=== PATIENT | female | born 1975 | race American Indian/Alaskan Native ===

== ENCOUNTER 2020-08-25 13:24 | Inpatient (IN) | payer OTHER ==
[2020-08-25 14:53] LABS: Mean Corpuscular HGB Conc 36 % (30-34); Mean Corpuscular Volume 93 fl (79-97); Platelet Count 493 K/mm3 (140-440); Red Blood Count 2.11 M/mm3 (3.65-5.03)
[2020-08-25 14:59] LABS: Red Cell Distribution Width 21.2 % (13.2-15.2)
[2020-08-25 15:01] LABS: Hematocrit 19.6 % (30.3-42.9)
[2020-08-25 15:03] LABS: Alanine Aminotransferase 44 units/L (7-56); Albumin 3.8 g/dL (3.9-5); BUN/Creatinine Ratio 10; Bilirubin,Direct 0.6 mg/dL (0-0.2); Blood Urea Nitrogen 8 mg/dL (7-17); Calcium 9.1 mg/dL (8.4-10.2); Hemolysis Index 88
[2020-08-25] MEDS ORDERED: SODIUM CHLORIDE 0.9% 500 ML 500 ML IV ONE (15:32)
[2020-08-25] MEDS ORDERED: diphenhydrAMINE 50 MG/ML VIAL IV ONE ×2 (15:34→17:48)
[2020-08-25] MEDS ORDERED: ONDANSETRON 4 MG/2 ML INJ IV ONE ×2 (15:34→17:47)
[2020-08-25] MEDS ORDERED: CLINDAMYCIN 600 MG/50 mL 600 MG/50 ML BAG IV ONE (15:34)
[2020-08-25] MEDS ORDERED: HYDROmorphone 1 MG/1 ML INJ IV ONE ×3 (15:34→17:48)
[2020-08-25 15:36] LABS: Anisocytosis 1+; Hypochromasia Few; Poikilocytosis Few; Schistocytes Few; Sickle Cells 1+; Total Cells Counted 100
[2020-08-25] MEDS ORDERED: D5W/0.2% NACL 1,000 ML IV SCH (16:00)
--- NOTE | 2020-08-25 16:02 | Emergency Department Report ---
ED General Adult HPI - General Chief complaint: Sickle Cell Crisis Stated complaint: SICKLE CELL PAIN Time Seen by Provider: 08/25/20 15:25 Source: patient Mode of arrival: Ambulatory Limitations: No Limitations - History of Present Illness Initial comments: This is a 45-year-old female with sickle cell disease that states that she has been having a crisis for the last 2 days. She complains of hurting all over. She does not exercise her chest or her abdomen. She also states that her face has become swollen. She does not refer fever or chills. She has some dyspnea on exertion but not at rest. She states that she has been coughing both white and yellow sputum. She states she has been admitted to this facility before. However, I do not find any previous records on the [address] system. She states that she has had a transfusion of blood last September. -: Gradual, days(s) Location: upper extremity, lower extremity Radiation: non-radiation Severity scale (0 -10): 10 Quality: aching Consistency: constant Associated Symptoms: denies other symptoms, cough, shortness of breath, other (Facial swelling) Treatments Prior to Arrival: none - Related Data Allergies Allergy/AdvReac Type Severity Reaction Status Date / Time No Known Allergies Allergy Unverified 08/25/20 13:26 ED Review of Systems ROS: Stated complaint: SICKLE CELL PAIN Other details as noted in HPI Constitutional: denies: chills, fever Eyes: denies: eye pain, eye discharge, vision change ENT: denies: ear pain, throat pain Respiratory: cough, SOB with exertion. denies: wheezing Cardiovascular: denies: chest pain, palpitations Endocrine: no symptoms reported Gastrointestinal: denies: abdominal pain, nausea, diarrhea Genitourinary: denies: urgency, dysuria, discharge Musculoskeletal: as per HPI. denies: joint swelling Skin: denies: rash, lesions Neurological: denies: headache, weakness, paresthesias Psychiatric: denies: anxiety, depression Hematological/Lymphatic: denies: easy bleeding, easy bruising ED Past Medical Hx - Past Medical History Previous Medical History?: Yes Hx Sickle Cell Disease: Yes - Surgical History Past Surgical History?: No ED Physical Exam - General Limitations: Physical Limitation General appearance: alert, in no apparent distress, other (Pale appearing) - Head Head exam: Present: atraumatic, normocephalic - Eye Eye exam: Present: normal appearance. Absent: scleral icterus - ENT ENT exam: Present: mucous membranes moist, other (Right facial swelling. Tenderness over the maxillary sinus. No grossly carious teeth. Multiple amalgams.) - Neck Neck exam: Present: normal inspection. Absent: tenderness, meningismus - Respiratory Respiratory exam: Present: normal lung sounds bilaterally. Absent: respiratory distress - Cardiovascular Cardiovascular Exam: Present: regular rate, normal rhythm. Absent: systolic murmur, diastolic murmur, rubs, gallop - GI/Abdominal GI/Abdominal exam: Present: soft, normal bowel sounds. Absent: distended, tenderness, guarding, rebound - Extremities Exam Extremities exam: Present: normal inspection - Back Exam Back exam: Present: normal inspection - Neurological Exam Neurological exam: Present: alert, oriented X3, CN II-XII intact. Absent: motor sensory deficit - Psychiatric Psychiatric exam: Present: normal affect, normal mood - Skin Skin exam: Present: warm, dry, intact, normal color. Absent: rash ED Course Vital Signs 08/25/20 13:26 Temperature 99.1 F Pulse Rate 97 H Respiratory 15 Rate Blood Pressure 153/64 O2 Sat by Pulse 93 Oximetry - Reevaluation(s) Reevaluation #1: Lactic acid, blood cultures, type and cross for [address] of the face ordered. Clindamycin IV. Hospitalist paged. Admission is anticipated. 08/25/20 16:06 ED Medical Decision Making - Lab Data Result diagrams: 08/25/20 14:30 08/25/20 14:30 Laboratory Results - last 24 hr 08/25/20 08/25/20 08/25/20 14:30 14:30 15:35 WBC 22.3 H RBC 2.11 L Hgb 7.0 L Hct 19.6 L* MCV 93 MCH 33 H MCHC 36 H RDW 21.2 H Plt Count 493 H Lymph # (Auto) Insurance Risk Surveyor Add Manual Diff Complete Total Counted 100 Seg Neuts % (Manual) 64.0 Band Neutrophils % 0 Lymphocytes % (Manual) 25.0 Reactive Lymphs % (Man) 0 Monocytes % (Manual) 9.0 H Eosinophils % (Manual) 1.0 Basophils % (Manual) 1.0 Metamyelocytes % 0 Myelocytes % 0 Promyelocytes % 0 Blast Cells % 0 Nucleated RBC % Not Reportable Seg Neutrophils # Man 14.3 H Band Neutrophils # 0.0 Lymphocytes # (Manual) 5.6 H Abs React Lymphs (Man) 0.0 Monocytes # (Manual) 2.0 H Eosinophils # (Manual) 0.2 Basophils # (Manual) 0.2 H Metamyelocytes # 0.0 Myelocytes # 0.0 Promyelocytes # 0.0 Blast Cells # 0.0 WBC Morphology Not Reportable Hypersegmented Neuts Not Reportable Hyposegmented Neuts Not Reportable Hypogranular Neuts Not Reportable Smudge Cells Not Reportable Toxic Granulation Not Reportable Toxic Vacuolation Not Reportable Dohle Bodies Not Reportable Pelger-Huet Anomaly Not Reportable Sincere Rods Not Reportable Platelet Estimate Not Reportable Clumped Platelets Not Reportable Plt Clumps, EDTA Not Reportable Large Platelets Not Reportable Giant Platelets Not Reportable Platelet Satelliting Not Reportable Plt Morphology Comment Not Reportable RBC Morphology Not Reportable Dimorphic RBCs Not Reportable Polychromasia Few Hypochromasia Few Poikilocytosis Few Anisocytosis 1+ Microcytosis Few Macrocytosis Not Reportable Spherocytes Not Reportable Pappenheimer Bodies Not Reportable Sickle Cells 1+ Target Cells Not Reportable Tear Drop Cells Not Reportable Ovalocytes Not Reportable Helmet Cells Not Reportable Stark-[place] Bodies Not Reportable Shandaken Rings Not Reportable Angela Cells Not Reportable Bite Cells Not Reportable Crenated Cell Not Reportable Elliptocytes Not Reportable Acanthocytes (Spur) Not Reportable Rouleaux Not Reportable Hemoglobin C Crystals Not Reportable Schistocytes Few Malaria parasites Not Reportable Percent Retic 11.65 H Andrew Bodies Not Reportable Hem Pathologist Commnt No PT INR APTT Sodium 136 L Potassium 4.8 Chloride 98.5 Carbon Dioxide 28 Anion Gap 14 BUN 8 Creatinine 0.8 Estimated GFR > 60 BUN/Creatinine Ratio 10 Glucose 171 H Calcium 9.1 Total Bilirubin 2.00 H Direct Bilirubin 0.6 H Indirect Bilirubin 1.4 AST 64 H ALT 44 Alkaline Phosphatase 160 H NT-Pro-B Natriuret Pep Total Protein 7.8 Albumin 3.8 L Albumin/Globulin Ratio 1.0 Blood Type A POSITIVE Crossmatch See Detail 08/25/20 08/25/20 15:35 15:35 WBC RBC Hgb Hct MCV MCH MCHC RDW Plt Count Lymph # (Auto) Add Manual Diff Total Counted Seg Neuts % (Manual) Band Neutrophils % Lymphocytes % (Manual) Reactive Lymphs % (Man) Monocytes % (Manual) Eosinophils % (Manual) Basophils % (Manual) Metamyelocytes % Myelocytes % Promyelocytes % Blast Cells % Nucleated RBC % Seg Neutrophils # Man Band Neutrophils # Lymphocytes # (Manual) Abs React Lymphs (Man) Monocytes # (Manual) Eosinophils # (Manual) Basophils # (Manual) Metamyelocytes # Myelocytes # Promyelocytes # Blast Cells # WBC Morphology Hypersegmented Neuts Hyposegmented Neuts Hypogranular Neuts Smudge Cells Toxic Granulation Toxic Vacuolation Dohle Bodies Pelger-Huet Anomaly Sincere Rods Platelet Estimate Clumped Platelets Plt Clumps, EDTA Large Platelets Giant Platelets Platelet Satelliting Plt Morphology Comment RBC Morphology Dimorphic RBCs Polychromasia Hypochromasia Poikilocytosis Anisocytosis Microcytosis Macrocytosis Spherocytes Pappenheimer Bodies Sickle Cells Target Cells Tear Drop Cells Ovalocytes Helmet Cells Stark-[place] Bodies Shandaken Rings [place] Cells Bite Cells Crenated Cell Elliptocytes Acanthocytes (Spur) Rouleaux Hemoglobin C Crystals Schistocytes Malaria parasites Percent Retic Andrew Bodies Hem Pathologist Commnt PT 14.4 INR 1.10 APTT 30.9 Sodium Potassium Chloride Carbon Dioxide Anion Gap BUN Creatinine Estimated GFR BUN/Creatinine Ratio Glucose Calcium Total Bilirubin Direct Bilirubin Indirect Bilirubin AST ALT Alkaline Phosphatase NT-Pro-B Natriuret Pep 329.4 Total Protein Albumin Albumin/Globulin Ratio Blood Type Crossmatch - Radiology Data FINDINGS: Subcutaneous soft tissue swelling is seen in the right facial region. Scattered areas of periodontal disease identified. I do not see definitive signs of abscess, although this is difficult to evaluate without IV contrast and because of dental amalgam artifact Prominent lymph nodes are seen bilaterally in the level 1 and level 2 regions, presumably reactive. Prominent soft tissue is seen in the roof the nasopharynx, presumably related to reactive adenoidal tissue. Please clinically correlate. Mild to moderate mucosal thickening seen in the right maxillary antrum, as well as the ethmoids. Bilateral temporomandibular joint disease seen.. IMPRESSION: 1. Cellulitic-type process seen in the right facial region, although no definitive signs of underlying cause appreciated. Study is suboptimal for reasons described above. Signer Name: Min Schreiber MD, III Signed: 08/25/2020 4:57 PM Workstation Name: [id number] Critical care attestation.: If time is entered above; I have spent that time in minutes in the direct care of this critically ill patient, excluding procedure time. ED Disposition Clinical Impression: Sickle cell crisis, Symptomatic anemia, Facial cellulitis, Periodontal disease Disposition: OP ADMIT IP TO THIS HOSP Is pt being admited?: Yes Does the pt Need Aspirin: No Condition: Stable Referrals: PRIMARY CARE, [Primary Care Provider] - 3-5 Days
--- NOTE | 2020-08-25 16:05 | XRay Report ---
CHEST 1 VIEW INDICATION / CLINICAL INFORMATION: cough. COMPARISON: None available. FINDINGS: SUPPORT DEVICES: None. HEART / MEDIASTINUM: No significant abnormality. LUNGS / PLEURA: Interstitial markings appear prominent in the right lung base raising concern for the possibility of right basilar pneumonia. Left lung is grossly clear. No pleural effusion noted. No pn eumothorax. ADDITIONAL FINDINGS: No significant additional findings. IMPRESSION: 1. Questionable right basilar pneumonia. Signer Name: Lizy Morrow MD Signed: 08/25/2020 4:00 PM Workstation Name: [id number]
[2020-08-25 16:18] LABS: INR 1.1 (0.87-1.13)
[2020-08-25 16:19] LABS: Partial Thromboplastin Time 30.9 Sec. (24.2-36.6)
[2020-08-25] MEDS ORDERED: SODIUM CHLORIDE 0.9% 1000 ML 3,000 ML IV ONE (16:58)
--- NOTE | 2020-08-25 17:02 | Cat Scan Report ---
CT facial bones wo con INDICATION / CLINICAL INFORMATION: 45 years Female; R facial swelling SSD. TECHNIQUE: Thin cut axial images obtained. Sagittal and coronal reconstructions performed. All CT scans at this location are performed using CT dose reduction for ALARA by means of automated exposure control. [place] al amalgam artifact noted. COMPARISON: None available. FINDINGS: Subcutaneous soft tissue swelling is seen in the right facial region. Scattered areas of periodontal disease identified. I do not see definitive signs of abscess, although this is difficult to evaluate without IV contrast and because of dental amalgam artifact Prominent lymph nodes are seen bilaterally in the level 1 and level 2 regions, presumably reactive. Prominent soft tissue is seen in the roof the nasopharynx, presumably related to reactive adenoidal t issue. Please clinically correlate. Mild to moderate mucosal thickening seen in the right maxillary antrum, as well as the ethmoids. Bilateral temporomandibular joint disease seen.. IMPRESSION: 1. Cellulitic-type process seen in the right facial region, although no definitive signs of underlyin g cause appreciated. Study is suboptimal for reasons described above. Signer Name: Min Schreiber MD, III Signed: 08/25/2020 4:57 PM Workstation Name: [id number]
[2020-08-25] MEDS ORDERED: ONDANSETRON 4 MG/2 ML INJ IV PRN (18:15)
[2020-08-25] MEDS ORDERED: MORPHINE 4 MG/1 ML INJ IV PRN (18:15)
[2020-08-25] MEDS ORDERED: ACETAMINOPHEN 325 MG TAB PO PRN (18:15)
--- NOTE | 2020-08-25 18:19 | History and Physical Report ---
History of Present Illness Chief complaint: I am hurting all over my body and my jaw is swollen History of present illness: 45-year-old female with sickle cell disease presents to ED for evaluation. Patient states that she has experienced generalized body pain over the past 2 days with persistent symptoms over the same timeframe. Patient also acknowledges right face swelling over the same timeframe. Patient transported to [facility] via private vehicle for further care and evaluation of the aforementioned symptoms. Patient seen and evaluated in the emergency department. Lab and imaging studies reviewed. Patient knowledges being told of need for dental follow-up but patient lost outpatient dental follow-up. Patient also acknowledges lack of follow-up for sickle cell disease. Patient found to have sickle cell disease crisis, complicated by right facial cellulitis without preseptal or post septal cellulitis or potential airway compromise. Patient placed in observation status and admitted to medical floor and treated with IV fluid resuscitation therapy, IV antibiotic therapy, and pain control therapy. P atient denies fever, chills, chest pain, palpitations, productive cough, skin rash, recent ill contacts, dysphagia, shortness of breath, drooling, trauma, known exposure to COVID-19. No prior admission for review. No medication listed at time of admission for reconciliation. Past History Past Medical History: other (See HPI) Past Surgical History: No surgical history, Other (Reviewed) Social history: single. denies: smoking, alcohol abuse, prescription drug abuse Family history: hypertension Medications and Allergies Allergies Allergy/AdvReac Type Severity Reaction Status Date / Time No Known Allergies Allergy Unverified 08/25/20 13:26 Active Meds: Active Medications Acetaminophen (Tylenol) 650 mg PO Q4H PRN PRN Reason: Pain MILD(1-3)/Fever >100.5/GAO Dextrose/Sodium Chloride (D5ns 0.2%) 1,000 mls @ 250 mls/hr IV DIRECT SPENCER Last Admin: 08/25/20 15:53 Dose: 250 mls/hr Documented by: Sodium Chloride (Nacl 0.9% 1000 Ml) 3,000 mls @ 999 mls/hr IV BOLUS ONE Stop: 08/25/20 19:58 Morphine Sulfate (Morphine) 2 mg IV Q4H PRN PRN Reason: Pain , Severe (7-10) Ondansetron HCl (Zofran) 4 mg IV Q8H PRN PRN Reason: Nausea And Vomiting Sodium Chloride (Sodium Chloride Flush Syringe 10 Ml) 10 ml IV BID SPENCER Sodium Chloride (Sodium Chloride Flush Syringe 10 Ml) 10 ml IV PRN PRN PRN Reason: LINE FLUSH Review of Systems Constitutional: other (Pain all over my body), no weight loss, no weight gain, no fever, no chills Ears, nose, mouth and throat: other (Right oral buccal mucosa edema), no ear pain, no ear discharge, no tinnitis, no decreased hearing, no nose pain, no nasal discharge, no hoarseness, no sore throat Cardiovascular: no chest pain, no orthopnea, no palpitations, no rapid/irregular heart beat, no edema, no syncope Respiratory: no cough, no cough with sputum, no excessive sputum, no hemoptysis, no shortness of breath Gastrointestinal: no abdominal pain, no nausea, no vomiting, no constipation, no change in bowel habits, no hematemesis Genitourinary Female: no pelvic pain, no flank pain, no menorrhagia, no dysuria, no urinary frequency, no urgency Rectal: no pain, no incontinence, no bleeding Musculoskeletal: no neck stiffness, no neck pain, no arm numbness/tingling, no low back pain, no shooting leg pain, no leg numbness/tingling Integumentary: no rash, no pruritis, no redness, no sores, no wounds Neurological: no head injury, no transient paralysis, no weakness, no parathesias, no numbness, no tingling Psychiatric: no anxiety, no memory loss, no change in sleep habits, no insomnia, no hypersomnia, no change in appetite, no change in libido Endocrine: no cold intolerance, no heat intolerance, no polyphagia, no polydipsia, no polyuria, no nocturia, no flushing Hematologic/Lymphatic: no easy bruising, no easy bleeding, no lymphedema Allergic/Immunologic: no wheezing, no persistent infections, no anaphylaxis, no angioedema Exam - Constitutional Vitals: Temp Pulse Resp BP Pulse Ox 99.1 F 93 H 15 133/75 94 08/25/20 13:26 08/25/20 15:45 08/25/20 15:45 08/25/20 17:45 08/25/20 17:45 General appearance: Present: mild distress - EENT Eyes: Present: PERRL ENT: hearing intact, clear oral mucosa, other (Right oral mucosa edema, no erythema, no fluctuance, no masses, no oral abscess) - Neck Neck: Present: supple, normal ROM - Respiratory Respiratory effort: normal Respiratory: bilateral: CTA - Cardiovascular Heart Sounds: Present: S1 & S2. Absent: rub, click - Extremities Extremities: pulses symmetrical, No edema Peripheral Pulses: within normal limits - Abdominal General gastrointestinal: Present: soft, non-tender, non-distended, normal bowel sounds Female genitourinary: Present: normal - Integumentary Integumentary: Present: clear, warm, dry - Musculoskeletal Musculoskeletal: gait normal, strength equal bilaterally - Psychiatric Psychiatric: appropriate mood/affect, intact judgment & insight - Neurologic Neurologic: CNII-XII intact, moves all extremities Results - Labs CBC & Chem 7: 08/25/20 14:30 08/25/20 14:30 Labs: Abnormal lab results 08/25/20 08/25/20 08/25/20 Range/Units 14:30 14:30 15:35 WBC 22.3 H (4.5-11.0) K/mm3 RBC 2.11 L (3.65-5.03) M/mm3 Hgb 7.0 L (10.1-14.3) gm/dl Hct 19.6 L* (30.3-42.9) % MCH 33 H (28-32) pg MCHC 36 H (30-34) % RDW 21.2 H (13.2-15.2) % Plt Count 493 H (140-440) K/mm3 Monocytes % (Manual) 9.0 H (0.0-7.3) % Seg Neutrophils # Man 14.3 H (1.8-7.7) K/mm3 Lymphocytes # (Manual) 5.6 H (1.2-5.4) K/mm3 Monocytes # (Manual) 2.0 H (0.0-0.8) K/mm3 Basophils # (Manual) 0.2 H (0.0-0.1) K/mm3 Percent Retic 11.65 H (0.78-2.58) % Sodium 136 L (137-145) mmol/L Glucose 171 H (65-100) mg/dL Total Bilirubin 2.00 H (0.1-1.2) mg/dL Direct Bilirubin 0.6 H (0-0.2) mg/dL AST 64 H (5-40) units/L Alkaline Phosphatase 160 H (35-129) units/L Albumin 3.8 L (3.9-5) g/dL Crossmatch See Detail Assessment and Plan - Patient Problems (1) Sickle cell crisis Current Visit: Yes Status: Acute Plan to address problem: CBC, CMP, reticulocyte count, IV fluid resuscitation therapy, pain control, monitor urine output every shift, supportive care. Outpatient hematology follow-up. (2) Systemic inflammatory response syndrome Current Visit: Yes Status: Acute Plan to address problem: CBC, CMP, empiric IV antibiotic therapy, supportive care (3) Facial cellulitis Current Visit: Yes Status: Acute Plan to address problem: Oral antibiotic therapy, supportive care, CT scan face. (4) DVT prophylaxis Current Visit: Yes Status: Acute Plan to address problem: SCD to bilateral lower extremities while in bed, patient is ambulatory
[2020-08-25] MEDS ORDERED: VANCOMYCIN/NS 1 GM/250 ML 1 GM/250 ML BAG IV ONE (18:21)
[2020-08-25] MEDS ORDERED: SODIUM CHLORIDE 0.9% 500 ML 500 ML ONE (20:02)
[2020-08-25] MEDS ORDERED: MORPHINE 2 MG/1 ML INJ ONE (20:23)
[2020-08-25] MEDS ORDERED: oxyCODONE /ACETAMINOPHEN 5-325MG TAB PO ONE (20:29)
[2020-08-25] MEDS ORDERED: metroNIDAZOLE 500 MG TAB ONE (21:27)
[2020-08-25] MEDS ORDERED: AMOXICILLIN/K CLAV 500/125MG TAB ONE (21:27)
[2020-08-25] MEDS: metroNIDAZOLE 500 MG TAB PO SCH (21:31)
[2020-08-25] MEDS ORDERED: AMOXICILLIN/K CLAV 875/125MG TAB ONE (21:33)
[2020-08-25] MEDS: AMOXICILLIN/K CLAV 875/125MG TAB PO SCH (21:34)
[2020-08-26] MEDS: HYDROmorphone 1 MG/1 ML INJ IV PRN ×5 (00:42→21:50)
[2020-08-26] MEDS: diphenhydrAMINE 50 MG/ML VIAL IV PRN ×5 (00:43→21:50)
[2020-08-26] MEDS: SODIUM CHLORIDE 0.9% 1000 ML 1,000 ML IV SCH ×3 (00:55→18:17)
[2020-08-26] MEDS: metroNIDAZOLE 500 MG TAB PO SCH ×3 (05:30→21:51)
[2020-08-26 08:42] LABS: Hematocrit 23.9 % (30.3-42.9); Hemoglobin 8.3 gm/dl (10.1-14.3); Mean Corpuscular HGB Conc 35 % (30-34); Mean Corpuscular Volume 92 fl (79-97); Platelet Count 456 K/mm3 (140-440)
[2020-08-26 08:43] LABS: Red Cell Distribution Width 21.8 % (13.2-15.2)
[2020-08-26 08:54] LABS: Blood Urea Nitrogen 10 mg/dL (7-17); Calcium 8.2 mg/dL (8.4-10.2); Hemolysis Index 83
[2020-08-26 08:59] LABS: BUN/Creatinine Ratio 14
[2020-08-26] MEDS: HYDROXYUREA 500 MG CAP PO SCH (09:31)
[2020-08-26] MEDS: AMOXICILLIN/K CLAV 875/125MG TAB PO SCH ×2 (09:31→21:50)
[2020-08-26 09:32] LABS: Anisocytosis 1+; Basophils % (Manual) 0 % (0.0-1.8); Poikilocytosis 2+; Sickle Cells 1+; Total Cells Counted 100
[2020-08-26 09:33] LABS: Large Platelets Few; Ovalocytes 1+; Platelet Estimate Consistent w Auto; Target Cells Few
[2020-08-26] MEDS: FOLIC ACID 1 MG TAB PO SCH (09:36)
--- NOTE | 2020-08-26 10:51 | Progress Note ---
Assessment and Plan -- Sickle cell crisis monitor reticulocyte count, LDH and h/h IV fluid resuscitation therapy, pain control -- Systemic inflammatory response syndrome empiric IV antibiotic therapy, supportive care -- Facial cellulitis iv antibiotic therapy, supportive care, CT scan face showed right facial cellulitis -- DVT prophylaxis SCD to bilateral lower extremities while in bed, patient is ambulatory Brief History: 45-year-old female with sickle cell disease presents to ED for generalized body pain over the past 2 days with right face swelling over the same timeframe. Patient found to have sickle cell disease crisis, complicated by right facial cellulitis without preseptal or post septal cellulitis or potential airway compromise. Patient admitted to medical floor and started on IV fluid resuscitation therapy, IV antibiotic therapy, and pain control therapy. 08/26: cont iv abx, follow h/h, retic count, LDH Subjective Date of service: 08/26/20 Interval history: Patient seen and examined c/o right sided jaw swelling and pain no chest pain or SOB Objective - Exam Narrative Exam: General appearance: Present: mild distress - EENT Eyes: Present: PERRL ENT: hearing intact, clear oral mucosa, other (Right oral mucosa edema, no erythema, no fluctuance, no masses, no oral abscess) - Neck Neck: Present: supple, normal ROM - Respiratory Respiratory effort: normal Respiratory: bilateral: CTA - Cardiovascular Heart Sounds: Present: S1 & S2. Absent: rub, click - Extremities Extremities: pulses symmetrical, No edema Peripheral Pulses: within normal limits - Abdominal General gastrointestinal: Present: soft, non-tender, non-distended, normal bowel sounds Female genitourinary: Present: normal - Integumentary Integumentary: Present: clear, warm, dry - Musculoskeletal Musculoskeletal: gait normal, strength equal bilaterally - Psychiatric Psychiatric: appropriate mood/affect, intact judgment & insight - Neurologic Neurologic: CNII-XII intact, moves all extremities - Constitutional Vitals: Vital Signs - 12hr 08/26/20 08/26/20 06:06 08:47 Temperature 97.6 F Pulse Rate 87 Respiratory 16 Rate Blood Pressure 127/51 O2 Sat by Pulse 92 93 Oximetry - Labs CBC & Chem 7: 08/27/20 07:16 08/26/20 07:59 Labs: Abnormal lab results 08/25/20 08/25/20 08/25/20 Range/Units 14:30 14:30 15:35 WBC 22.3 H (4.5-11.0) K/mm3 RBC 2.11 L (3.65-5.03) M/mm3 Hgb 7.0 L (10.1-14.3) gm/dl Hct 19.6 L* (30.3-42.9) % MCH 33 H (28-32) pg MCHC 36 H (30-34) % RDW 21.2 H (13.2-15.2) % Plt Count 493 H (140-440) K/mm3 Seg Neuts % (Manual) (40.0-70.0) % Monocytes % (Manual) 9.0 H (0.0-7.3) % Nucleated RBC % (0.0-0.9) % Seg Neutrophils # Man 14.3 H (1.8-7.7) K/mm3 Lymphocytes # (Manual) 5.6 H (1.2-5.4) K/mm3 Monocytes # (Manual) 2.0 H (0.0-0.8) K/mm3 Basophils # (Manual) 0.2 H (0.0-0.1) K/mm3 Percent Retic 11.65 H (0.78-2.58) % Sodium 136 L (137-145) mmol/L Glucose 171 H (65-100) mg/dL Calcium (8.4-10.2) mg/dL Total Bilirubin 2.00 H (0.1-1.2) mg/dL Direct Bilirubin 0.6 H (0-0.2) mg/dL AST 64 H (5-40) units/L Alkaline Phosphatase 160 H (35-129) units/L Albumin 3.8 L (3.9-5) g/dL Crossmatch See Detail 08/26/20 08/26/20 Range/Units 07:59 07:59 WBC 23.5 H (4.5-11.0) K/mm3 RBC 2.60 L (3.65-5.03) M/mm3 Hgb 8.3 L (10.1-14.3) gm/dl Hct 23.9 L (30.3-42.9) % MCH (28-32) pg MCHC 35 H (30-34) % RDW 21.8 H (13.2-15.2) % Plt Count 456 H (140-440) K/mm3 Seg Neuts % (Manual) 71.0 H (40.0-70.0) % Monocytes % (Manual) 10.0 H (0.0-7.3) % Nucleated RBC % 1.0 H (0.0-0.9) % Seg Neutrophils # Man 16.7 H (1.8-7.7) K/mm3 Lymphocytes # (Manual) (1.2-5.4) K/mm3 Monocytes # (Manual) 2.4 H (0.0-0.8) K/mm3 Basophils # (Manual) (0.0-0.1) K/mm3 Percent Retic (0.78-2.58) % Sodium 136 L (137-145) mmol/L Glucose (65-100) mg/dL Calcium 8.2 L (8.4-10.2) mg/dL Total Bilirubin (0.1-1.2) mg/dL Direct Bilirubin (0-0.2) mg/dL AST (5-40) units/L Alkaline Phosphatase (35-129) units/L Albumin (3.9-5) g/dL Crossmatch
[2020-08-27] MEDS: metroNIDAZOLE 500 MG TAB PO SCH ×4 (05:14→21:12)
[2020-08-27] MEDS: HYDROmorphone 1 MG/1 ML INJ IV PRN ×4 (05:14→23:45)
[2020-08-27] MEDS: diphenhydrAMINE 50 MG/ML VIAL IV PRN ×3 (05:14→20:22)
[2020-08-27] MEDS: SODIUM CHLORIDE 0.9% 1000 ML 1,000 ML IV SCH ×3 (05:23→21:08)
[2020-08-27 07:46] LABS: Basophils # (Auto) 0.2 K/mm3 (0.0-0.1); Basophils % (Auto) 1.3 % (0.0-1.8); Eosinophils # (Auto) 0.8 K/mm3 (0.0-0.4); Eosinophils % (Auto) 4.8 % (0.0-4.3); Hematocrit 22.6 % (30.3-42.9); Hemoglobin 7.8 gm/dl (10.1-14.3); Lymphocytes # (Auto) 4.2 K/mm3 (1.2-5.4); Lymphocytes % (Auto) 26.4 % (13.4-35.0); Mean Corpuscular HGB Conc 35 % (30-34); Mean Corpuscular Volume 91 fl (79-97); Monocytes # (Auto) 1.2 K/mm3 (0.0-0.8); Monocytes % (Auto) 7.8 % (0.0-7.3); Platelet Count 475 K/mm3 (140-440)
[2020-08-27 08:04] LABS: Albumin 3.4 g/dL (3.9-5); Bilirubin,Direct 0.7 mg/dL (0-0.2)
[2020-08-27 08:11] LABS: Red Cell Distribution Width 21.5 % (13.2-15.2)
[2020-08-27] MEDS: AMOXICILLIN/K CLAV 875/125MG TAB PO SCH ×3 (10:38→21:11)
[2020-08-27] MEDS: FOLIC ACID 1 MG TAB PO SCH (10:38)
[2020-08-27] MEDS: HYDROXYUREA 500 MG CAP PO SCH (10:39)
[2020-08-27] MEDS: amLODIPine 10 MG TAB PO SCH (13:30)
--- NOTE | 2020-08-27 16:24 | Progress Note ---
Assessment and Plan -- Sickle cell crisis monitor reticulocyte count, LDH and h/h IV fluid resuscitation therapy, pain control -- Systemic inflammatory response syndrome empiric IV antibiotic therapy, supportive care -- Facial cellulitis iv antibiotic therapy, supportive care, CT scan face showed right facial cellulitis -- DVT prophylaxis SCD to bilateral lower extremities while in bed, patient is ambulatory Brief History: 45-year-old female with sickle cell disease presents to ED for generalized body pain over the past 2 days with right face swelling over the same timeframe. Patient found to have sickle cell disease crisis, complicated by right facial cellulitis without preseptal or post septal cellulitis or potential airway compromise. Patient admitted to medical floor and started on IV fluid resuscitation therapy, IV antibiotic therapy, and pain control therapy. 08/26: cont iv abx, follow h/h, retic count, LDH 08/27: patient still has sig right facial swelling, cont iv abx, Subjective Date of service: 08/27/20 Interval history: Patient seen and examined c/o right sided jaw swelling and pain - slightly improved has difficulty to eat no chest pain or SOB Objective - Exam Narrative Exam: General appearance: Present: mild distress - EENT Eyes: Present: PERRL ENT: hearing intact, clear oral mucosa, other (Right oral mucosa edema, no erythema, no fluctuance, no masses, no oral abscess) - Neck Neck: Present: supple, normal ROM - Respiratory Respiratory effort: normal Respiratory: bilateral: CTA - Cardiovascular Heart Sounds: Present: S1 & S2. Absent: rub, click - Extremities Extremities: pulses symmetrical, No edema Peripheral Pulses: within normal limits - Abdominal General gastrointestinal: Present: soft, non-tender, non-distended, normal bowel sounds Female genitourinary: Present: normal - Integumentary Integumentary: Present: clear, warm, dry - Musculoskeletal Musculoskeletal: gait normal, strength equal bilaterally - Psychiatric Psychiatric: appropriate mood/affect, intact judgment & insight - Neurologic Neurologic: CNII-XII intact, moves all extremities - Constitutional Vitals: Vital Signs - 12hr 08/27/20 08/27/20 08/27/20 05:24 06:11 08:19 Temperature 98.3 F Pulse Rate 85 71 Respiratory 22 Rate Blood Pressure Blood Pressure 187/79 [Left] O2 Sat by Pulse 88 95 Oximetry 08/27/20 08/27/20 12:12 13:30 Temperature 98.7 F Pulse Rate 79 Respiratory 22 Rate Blood Pressure 127/51 127/51 Blood Pressure [Left] O2 Sat by Pulse 90 Oximetry - Labs CBC & Chem 7: 08/27/20 07:16 08/26/20 07:59 Labs: Abnormal lab results 08/27/20 08/27/20 08/27/20 Range/Units 07:16 07:16 07:16 WBC 16.0 H (4.5-11.0) K/mm3 RBC 2.50 L (3.65-5.03) M/mm3 Hgb 7.8 L (10.1-14.3) gm/dl Hct 22.6 L (30.3-42.9) % MCHC 35 H (30-34) % RDW 21.5 H (13.2-15.2) % Plt Count 475 H (140-440) K/mm3 [place] % (Auto) 7.8 H (0.0-7.3) % Eos % (Auto) 4.8 H (0.0-4.3) % [place] # (Auto) 1.2 H (0.0-0.8) K/mm3 Eos # (Auto) 0.8 H (0.0-0.4) K/mm3 Baso # (Auto) 0.2 H (0.0-0.1) K/mm3 Seg Neutrophils # 9.5 H (1.8-7.7) K/mm3 Percent Retic 9.22 H (0.78-2.58) % Total Bilirubin 2.00 H (0.1-1.2) mg/dL Direct Bilirubin 0.7 H (0-0.2) mg/dL AST 45 H (5-40) units/L Alkaline Phosphatase 151 H (35-129) units/L Lactate Dehydrogenase (91-180) units/L Albumin 3.4 L (3.9-5) g/dL 08/27/20 Range/Units 07:16 WBC (4.5-11.0) K/mm3 RBC (3.65-5.03) M/mm3 Hgb (10.1-14.3) gm/dl Hct (30.3-42.9) % MCHC (30-34) % RDW (13.2-15.2) % Plt Count (140-440) K/mm3 [place] % (Auto) (0.0-7.3) % Eos % (Auto) (0.0-4.3) % [place] # (Auto) (0.0-0.8) K/mm3 Eos # (Auto) (0.0-0.4) K/mm3 Baso # (Auto) (0.0-0.1) K/mm3 Seg Neutrophils # (1.8-7.7) K/mm3 Percent Retic (0.78-2.58) % Total Bilirubin (0.1-1.2) mg/dL Direct Bilirubin (0-0.2) mg/dL AST (5-40) units/L Alkaline Phosphatase (35-129) units/L Lactate Dehydrogenase 438 H (91-180) units/L Albumin (3.9-5) g/dL
[2020-08-28] MEDS: diphenhydrAMINE 50 MG/ML VIAL IV PRN ×4 (02:32→21:26)
[2020-08-28] MEDS: HYDROmorphone 1 MG/1 ML INJ IV PRN ×5 (04:28→21:26)
[2020-08-28] MEDS: SODIUM CHLORIDE 0.9% 1000 ML 1,000 ML IV SCH ×3 (04:29→21:25)
[2020-08-28] MEDS: metroNIDAZOLE 500 MG TAB PO SCH ×3 (05:13→21:26)
[2020-08-28 06:15] LABS: Hematocrit 23.1 % (30.3-42.9); Hemoglobin 8.1 gm/dl (10.1-14.3); Mean Corpuscular HGB Conc 35 % (30-34); Mean Corpuscular Volume 92 fl (79-97); Platelet Count 498 K/mm3 (140-440); Red Blood Count 2.52 M/mm3 (3.65-5.03)
[2020-08-28 06:16] LABS: Red Cell Distribution Width 21.6 % (13.2-15.2)
[2020-08-28 07:01] LABS: Anisocytosis 1+; Basophils % (Manual) 0 % (0.0-1.8); Platelet Estimate Consistent w Auto; Sickle Cells 1+; Target Cells 2+; Total Cells Counted 100
[2020-08-28] MEDS: HYDROXYUREA 500 MG CAP PO SCH (09:43)
[2020-08-28] MEDS: AMOXICILLIN/K CLAV 875/125MG TAB PO SCH ×2 (09:43→21:25)
[2020-08-28] MEDS: amLODIPine 10 MG TAB PO SCH (09:43)
[2020-08-28] MEDS: FOLIC ACID 1 MG TAB PO SCH (09:43)
--- NOTE | 2020-08-28 10:52 | Progress Note ---
Assessment and Plan Assessment and plan: --Sickle cell crisis: Reticulocyte count 10.55[N 0.7-2.5], H&H low stable IV fluid resuscitation therapy, pain control --Sickle cell anemia; requiring 1 unit of PRBC transfusion H&H low stable 8.1/23.1, closely monitor -- Systemic inflammatory response syndrome empiric IV antibiotic therapy, supportive care -- Facial cellulitis/tooth/gum infection iv antibiotic therapy, supportive care, CT scan face showed right facial cellulitis Mild improvement, continue current antibiotics Patient advised to see dentist/oral surgeon upon discharge for further evaluation and management -- DVT prophylaxis SCD to bilateral lower extremities while in bed, patient is ambulatory Brief History: 45-year-old female with sickle cell disease presents to ED for generalized body pain over the past 2 days with right face swelling over the same timeframe. Patient found to have sickle cell disease crisis, complicated by right facial cellulitis without preseptal or post septal cellulitis or potential airway compromise. Patient admitted to medical floor and started on IV fluid resuscit ation therapy, IV antibiotic therapy, and pain control therapy. History Interval history: I have seen and examined the patient at the bedside this morning Patient's chart and medications reviewed Patient was admitted with sickle cell crisis Symptoms slightly improved Continues to have severe body pains Continues to have high reticulocyte count 10.55 today [Normal being 0.7 - 2.5] Patient is not in acute distress afebrile Vital signs noted Hospitalist Physical - Constitutional Vitals: Temp Pulse Resp BP Pulse Ox 98.6 F 85 18 155/67 96 08/28/20 04:22 08/28/20 09:43 08/28/20 04:22 08/28/20 09:43 08/28/20 04:22 General appearance: Present: mild distress, well-nourished - EENT Eyes: Present: PERRL, EOM intact - Neck Neck: Present: supple, normal ROM - Respiratory Respiratory effort: normal Respiratory: bilateral: diminished, negative: rales, rhonchi, wheezing - Cardiovascular Rhythm: regular Heart Sounds: Present: S1 & S2 - Extremities Extremities: no ischemia, No edema - Abdominal General gastrointestinal: soft, non-tender, non-distended, normal bowel sounds - Integumentary Integumentary: Present: clear, warm - Psychiatric Psychiatric: appropriate mood/affect, cooperative - Neurologic Neurologic: moves all extremities Results - Labs CBC & Chem 7: 08/28/20 05:14 08/26/20 07:59 Labs: Laboratory Last Values WBC 17.1 K/mm3 (4.5-11.0) H 08/28/20 05:14 RBC 2.52 M/mm3 (3.65-5.03) L 08/28/20 05:14 Hgb 8.1 gm/dl (10.1-14.3) L 08/28/20 05:14 Hct 23.1 % (30.3-42.9) L 08/28/20 05:14 MCV 92 fl (79-97) 08/28/20 05:14 MCH 32 pg (28-32) 08/28/20 05:14 MCHC 35 % (30-34) H 08/28/20 05:14 RDW 21.6 % (13.2-15.2) H 08/28/20 05:14 Plt Count 498 K/mm3 (140-440) H 08/28/20 05:14 Lymph % (Auto) 26.4 % (13.4-35.0) 08/27/20 07:16 [place] % (Auto) 7.8 % (0.0-7.3) H 08/27/20 07:16 Eos % (Auto) 4.8 % (0.0-4.3) H 08/27/20 07:16 Baso % (Auto) 1.3 % (0.0-1.8) 08/27/20 07:16 Lymph # (Auto) 4.2 K/mm3 (1.2-5.4) 08/27/20 07:16 [place] # (Auto) 1.2 K/mm3 (0.0-0.8) H 08/27/20 07:16 Eos # (Auto) 0.8 K/mm3 (0.0-0.4) H 08/27/20 07:16 Baso # (Auto) 0.2 K/mm3 (0.0-0.1) H 08/27/20 07:16 Add Manual Diff Complete 08/28/20 05:14 Total Counted 100 08/28/20 05:14 Seg Neutrophils % 59.7 % (40.0-70.0) 08/27/20 07:16 Seg Neuts % (Manual) 62.0 % (40.0-70.0) 08/28/20 05:14 Band Neutrophils % 0 % 08/28/20 05:14 Lymphocytes % (Manual) 20.0 % (13.4-35.0) 08/28/20 05:14 Reactive Lymphs % (Man) 0 % 08/28/20 05:14 Monocytes % (Manual) 4.0 % (0.0-7.3) 08/28/20 05:14 Eosinophils % (Manual) 14.0 % (0.0-4.3) H 08/28/20 05:14 Basophils % (Manual) 0 % (0.0-1.8) 08/28/20 05:14 Metamyelocytes % 0 % 08/28/20 05:14 Myelocytes % 0 % 08/28/20 05:14 Promyelocytes % 0 % 08/28/20 05:14 Blast Cells % 0 % 08/28/20 05:14 Nucleated RBC % Not Reportable 08/28/20 05:14 Seg Neutrophils # 9.5 K/mm3 (1.8-7.7) H 08/27/20 07:16 Seg Neutrophils # Man 10.6 K/mm3 (1.8-7.7) H 08/28/20 05:14 Band Neutrophils # 0.0 K/mm3 08/28/20 05:14 Lymphocytes # (Manual) 3.4 K/mm3 (1.2-5.4) 08/28/20 05:14 Abs React Lymphs (Man) 0.0 K/mm3 08/28/20 05:14 Monocytes # (Manual) 0.7 K/mm3 (0.0-0.8) 08/28/20 05:14 Eosinophils # (Manual) 2.4 K/mm3 (0.0-0.4) H 08/28/20 05:14 Basophils # (Manual) 0.0 K/mm3 (0.0-0.1) 08/28/20 05:14 Metamyelocytes # 0.0 K/mm3 08/28/20 05:14 Myelocytes # 0.0 K/mm3 08/28/20 05:14 Promyelocytes # 0.0 K/mm3 08/28/20 05:14 Blast Cells # 0.0 K/mm3 08/28/20 05:14 WBC Morphology Not Reportable 08/28/20 05:14 Hypersegmented Neuts Not Reportable 08/28/20 05:14 Hyposegmented Neuts Not Reportable 08/28/20 05:14 Hypogranular Neuts Not Reportable 08/28/20 05:14 Smudge Cells Not Reportable 08/28/20 05:14 Toxic Granulation Not Reportable 08/28/20 05:14 Toxic Vacuolation Not Reportable 08/28/20 05:14 Dohle Bodies Not Reportable 08/28/20 05:14 Pelger-Huet Anomaly Not Reportable 08/28/20 05:14 Sincere Rods Not Reportable 08/28/20 05:14 Platelet Estimate Consistent w auto 08/28/20 05:14 Clumped Platelets Not Reportable 08/28/20 05:14 Plt Clumps, EDTA Not Reportable 08/28/20 05:14 Large Platelets Not Reportable 08/28/20 05:14 Giant Platelets Not Reportable 08/28/20 05:14 Platelet Satelliting Not Reportable 08/28/20 05:14 Plt Morphology Comment Not Reportable 08/28/20 05:14 RBC Morphology Not Reportable 08/28/20 05:14 Dimorphic RBCs Not Reportable 08/28/20 05:14 Polychromasia Not Reportable 08/28/20 05:14 Hypochromasia Not Reportable 08/28/20 05:14 Poikilocytosis Not Reportable 08/28/20 05:14 Anisocytosis 1+ 08/28/20 05:14 Microcytosis Not Reportable 08/28/20 05:14 Macrocytosis Not Reportable 08/28/20 05:14 Spherocytes Not Reportable 08/28/20 05:14 Pappenheimer Bodies Not Reportable 08/28/20 05:14 Sickle Cells 1+ 08/28/20 05:14 Target Cells 2+ 08/28/20 05:14 Tear Drop Cells Not Reportable 08/28/20 05:14 Ovalocytes Not Reportable 08/28/20 05:14 Helmet Cells Not Reportable 08/28/20 05:14 Stark-[place] Bodies Not Reportable 08/28/20 05:14 [place] Rings Not Reportable 08/28/20 05:14 [place] Cells Not Reportable 08/28/20 05:14 Bite Cells Not Reportable 08/28/20 05:14 Crenated Cell Not Reportable 08/28/20 05:14 Elliptocytes Not Reportable 08/28/20 05:14 Acanthocytes (Spur) Not Reportable 08/28/20 05:14 Rouleaux Not Reportable 08/28/20 05:14 Hemoglobin C Crystals Not Reportable 08/28/20 05:14 Schistocytes Not Reportable 08/28/20 05:14 Malaria parasites Not Reportable 08/28/20 05:14 Percent Retic 10.55 % (0.78-2.58) H 08/28/20 05:14 Andrew Bodies Not Reportable 08/28/20 05:14 Hem Pathologist Commnt No 08/28/20 05:14 PT 14.4 Sec. (12.2-14.9) 08/25/20 15:35 INR 1.10 (0.87-1.13) 08/25/20 15:35 APTT 30.9 Sec. (24.2-36.6) 08/25/20 15:35 Sodium 136 mmol/L (137-145) L 08/26/20 07:59 Potassium 4.3 mmol/L (3.6-5.0) 08/26/20 07:59 Chloride 103.1 mmol/L (98-107) 08/26/20 07:59 Carbon Dioxide 23 mmol/L (22-30) 08/26/20 07:59 Anion Gap 14 mmol/L 08/26/20 07:59 BUN 10 mg/dL (7-17) 08/26/20 07:59 Creatinine 0.7 mg/dL (0.6-1.2) 08/26/20 07:59 Estimated GFR > 60 ml/min 08/26/20 07:59 BUN/Creatinine Ratio 14 % 08/26/20 07:59 Glucose 94 mg/dL (65-100) 08/26/20 07:59 Calcium 8.2 mg/dL (8.4-10.2) L 08/26/20 07:59 Total Bilirubin 2.00 mg/dL (0.1-1.2) H 08/27/20 07:16 Direct Bilirubin 0.7 mg/dL (0-0.2) H 08/27/20 07:16 Indirect Bilirubin 1.3 mg/dL 08/27/20 07:16 AST 45 units/L (5-40) H 08/27/20 07:16 ALT 43 units/L (7-56) 08/27/20 07:16 Alkaline Phosphatase 151 units/L (35-129) H 08/27/20 07:16 Lactate Dehydrogenase 448 units/L (91-180) H 08/28/20 05:14 NT-Pro-B Natriuret Pep 329.4 pg/mL (0-450) 08/25/20 15:35 Total Protein 7.3 g/dL (6.3-8.2) 08/27/20 07:16 Albumin 3.4 g/dL (3.9-5) L 08/27/20 07:16 Albumin/Globulin Ratio 0.9 % 08/27/20 07:16 Blood Type A POSITIVE 08/25/20 15:35 Antibody Screen Negative 08/25/20 15:35 Crossmatch See Detail 08/25/20 15:35 Microbiology: Microbiology 08/25/20 15:35 Peripheral/Venous Blood Culture - Preliminary NO GROWTH AFTER 48 HOURS 08/25/20 15:35 Peripheral/Venous Blood Culture - Preliminary NO GROWTH AFTER 48 HOURS Santamaria/IV: Voiding Method Toilet IV Catheter Type [Left Peripheral IV Antecubital] Active Medications - Current Medications Current Medications: Generic Name Dose Route Start Last Admin Trade Name Freq PRN Reason Stop Dose Admin Acetaminophen 650 mg 08/25/20 18:15 Tylenol PO Q4H PRN Pain MILD(1-3)/Fever >100.5/GAO Amlodipine Besylate 10 mg 08/27/20 12:00 08/28/20 09:43 Amlodipine PO 10 mg QDAY SPENCER Administration Amoxicillin/Clavulanate Potassium 1 each 08/25/20 19:00 08/28/20 09:43 Augmentin 875 Mg PO 1 each Q12HR SPENCER Administration Diphenhydramine HCl 25 mg 08/26/20 00:04 08/28/20 08:24 Benadryl IV 25 mg Q6H PRN Administration Itching Folic Acid 1 mg 08/26/20 10:00 08/28/20 09:43 Folvite PO 1 mg QDAY SPENCER Administration Hydromorphone HCl 1 mg 08/26/20 00:01 08/28/20 08:24 Dilaudid IV 1 mg Q4H PRN Administration Pain , Severe (7-10) Hydroxyurea 500 mg 08/26/20 10:00 08/28/20 09:43 Hydroxyurea PO 500 mg QDAY SPENCER Administration Sodium Chloride 1,000 mls @ 125 mls/hr 08/25/20 18:30 08/28/20 04:29 Nacl 0.9% 1000 Ml IV 125 mls/hr DIRECT SPENCER Administration Metronidazole 500 mg 08/25/20 19:00 08/28/20 05:13 Flagyl PO 08/29/20 18:59 500 mg Q8HR SPENCER Administration Protocol Ondansetron HCl 4 mg 08/25/20 18:15 Zofran IV Q8H PRN Nausea And Vomiting Sodium Chloride 10 ml 08/25/20 22:00 08/27/20 21:12 Sodium Chloride Flush Syringe 10 Ml IV Not Given BID SPENCER Sodium Chloride 10 ml 08/25/20 18:15 Sodium Chloride Flush Syringe 10 Ml IV PRN PRN LINE FLUSH
[2020-08-28] MEDS ORDERED: ENOXAPARIN 40 MG/0.4 ML INJ SUB-Q SCH (22:00)
[2020-08-29] MEDS: HYDROmorphone 1 MG/1 ML INJ IV PRN ×3 (02:06→10:19)
[2020-08-29] MEDS: SODIUM CHLORIDE 0.9% 1000 ML 1,000 ML IV SCH ×2 (04:11→10:26)
[2020-08-29] MEDS: diphenhydrAMINE 50 MG/ML VIAL IV PRN ×2 (05:54→12:36)
[2020-08-29] MEDS: metroNIDAZOLE 500 MG TAB PO SCH ×2 (05:54→15:02)
[2020-08-29 07:42] VITALS: BP 130/61
[2020-08-29] MEDS: FOLIC ACID 1 MG TAB PO SCH (10:24)
[2020-08-29] MEDS: amLODIPine 10 MG TAB PO SCH (10:24)
[2020-08-29] MEDS: HYDROXYUREA 500 MG CAP PO SCH (10:24)
[2020-08-29] MEDS: AMOXICILLIN/K CLAV 875/125MG TAB PO SCH (10:24)
--- NOTE | 2020-08-29 13:51 | Discharge Summary ---
Providers - Providers Date of Admission: 08/25/20 18:29 Date of discharge: 08/29/20 Attending physician: LEXIS GARCIA Primary care physician: INFORMATION SCIENTIST Hospitalization Condition: Stable Hospital course: --Sickle cell crisis: Reticulocyte count 10.55[N 0.7-2.5], H&H low stable IV fluid resuscitation therapy, pain control --Sickle cell anemia; requiring 1 unit of PRBC transfusion H&H low stable 8.1/23.1, closely monitor -- Systemic inflammatory response syndrome empiric IV antibiotic therapy, supportive care -- Facial cellulitis/tooth/gum infection iv antibiotic therapy, supportive care, CT scan face showed right facial cellulitis Mild improvement, continue current antibiotics Patient advised to see dentist/oral surgeon upon discharge for further evaluation and management -- DVT prophylaxis SCD to bilateral lower extremities while in bed, patient is ambulatory Disposition: TO HOME OR SELFCARE Time spent for discharge: 32 min Core Measure Documentation - Palliative Care Palliative Care/ Comfort Measures: Not Applicable - Core Measures Any of the following diagnoses?: none Exam - Constitutional Vitals: Temp Pulse Resp BP Pulse Ox 98.4 F 79 18 130/61 91 08/29/20 07:30 08/29/20 07:30 08/29/20 07:30 08/29/20 10:24 08/29/20 07:30 General appearance: Present: no acute distress, well-nourished - EENT Eyes: Present: PERRL, EOM intact - Neck Neck: Present: supple, normal ROM - Respiratory Respiratory effort: normal Respiratory: bilateral: diminished, negative: rales, rhonchi, wheezing - Cardiovascular Rhythm: regular Heart Sounds: Present: S1 & S2 - Extremities Extremities: no ischemia, No edema - Abdominal General gastrointestinal: Present: soft, non-tender, non-distended, normal bowel sounds - Integumentary Integumentary: Present: clear, warm - Musculoskeletal Musculoskeletal: strength equal bilaterally, generalized weakness - Psychiatric Psychiatric: appropriate mood/affect, cooperative - Neurologic Neurologic: CNII-XII intact, moves all extremities Plan Activity: advance as tolerated, fall precautions Diet: regular Additional Instructions: Advised to see private manager it training in 1 week. Advised to see private dentist for tooth and gum problems. If you have worsening symptoms contact MD or go to emergency room Follow up with: PRIMARY CARE, [Primary Care Provider] - 3-5 Days Prescriptions: amLODIPine 10 mg PO QDAY #30 tablet Amoxicillin/K Clav Tab [Augmentin 875MG TAB] 1 each PO Q12HR #10 tablet Folic Acid [Folvite] 1 mg PO QDAY #30 tablet Hydroxyurea 500 mg PO QDAY #30 capsule
== END 2020-08-29 16:16 | disposition home or self-care (01) | DRG 812 ==
LOC: ED 13:24 → 3A 18:29 → OBSVTOIN 18:29
PROVIDERS: ADMIT Internal Medicine; ATTEND Internal Medicine
PROC: 30233N1 Transfusion of Nonautologous Red Blood Cells into Peripheral Vein, Percutaneous Approach (ICD-10-PCS; principal; 2020-08-25)
DX: D57.00 Hb-SS disease with crisis, unspecified (principal); L03.211 Cellulitis of face; R65.10 Systemic inflammatory response syndrome (SIRS) of non-infectious origin without acute organ dysfunction; Z82.49 Family history of ischemic heart disease and other diseases of the circulatory system
CPT/HCPCS: 36415; 70486; 71045; 80048; 80076; 83615; 83880; 85007; 85025; 85045; 85610; 85730; 86850; 86900; 86901; 86920; 87040; 94760; 96365; 96375; G0378; J1170; J1200; J1650; J2270; J2405; J7030; J7040; P9016